=== PATIENT | female | born 1940 | race Caucasian/White ===

== ENCOUNTER 2017-12-13 19:12 | Emergency (ER) | payer OTHER ==
[~2017-12-13] VITALS: Ht 157.5 cm; Wt 71.2 kg
[2017-12-13] MEDS ORDERED: LEVOTHYROXINE75 MCG (19:27)
[2017-12-13] MEDS ORDERED: ALENDRONATE SOD70 MG (19:27)
[2017-12-13] MEDS ORDERED: LOSARTAN POTAS100 MG (19:28)
[2017-12-13] MEDS ORDERED: GLIMEPIRIDE2 MG (19:28)
[2017-12-13] MEDS ORDERED: METOPROLOL TAR100 MG (19:28)
[2017-12-13] MEDS ORDERED: ATORVASTATIN CA10 MG (19:29)
[2017-12-13] MEDS ORDERED: HYDROCHLOROTH12.5 M1 (19:29)
== END 2017-12-13 21:33 | disposition home or self-care (01) ==
LOC: ER 19:12
DX: R07.89 Other chest pain (principal)